=== PATIENT | female | born 1975 | race Caucasian/White ===

== ENCOUNTER → 2023-09-09 14:00 | Outpatient (BNVA) | payer MEDICARE, MEDICAID, SELFPAY | PROVIDERS: PCP Family Medicine; Referring Provider Family Medicine; Visit Provider Psychiatry & Neurology Neurology | DX: G43.009 Migraine without aura, not intractable, without status migrainosus (principal); G89.29 Other chronic pain; I95.1 Orthostatic hypotension; R56.9 Unspecified convulsions; M54.2 Cervicalgia | CPT/HCPCS: 99205; G2212 ==

== ENCOUNTER → 2023-11-15 10:47 | Outpatient (BNVA) | payer MEDICARE, MEDICAID, SELFPAY | PROVIDERS: PCP Family Medicine; Referring Provider Family Medicine; Visit Provider Psychiatry & Neurology Neurology | DX: G43.009 Migraine without aura, not intractable, without status migrainosus (principal); I95.1 Orthostatic hypotension; R56.9 Unspecified convulsions; M54.2 Cervicalgia; G89.29 Other chronic pain | CPT/HCPCS: 99215 ==

== ENCOUNTER 2023-12-07 03:05 | Outpatient (CLI) | payer MEDICARE, MEDICAID, SELFPAY ==
--- NOTE | 2023-12-15 10:38 | PDOC.EEG_ITS ---
Neurology EEG EEG: [facility] Department of Neurology LONG-TERM AMBULATORY EEG REPORT Date of Recordin12/07/23 at 13:29:38 to 12/09/23 at 07:10:31 Interpreting Physician: Dr. Lyndsay Patel PCP/Referring Provider: Dr. Chalo Caraballo Reason for study: Ms. Cornejo has recurrent spells of generalized shaking without LOC/SYLVIA. Current Medications: Home Medications ?Medication ?Instructions ?Recorded ?Confirmed ?Type albuterol sulfate 90 mcg/actuation 2 puff inhalation Q6H PRN 08/30/23 11/15/23 History aerosol inhaler (ProAir HFA) docusate sodium 100 mg capsule 100 mg PO BID PRN 08/30/23 11/15/23 History (Colace) dulaglutide 0.75 mg/0.5 mL 0.75 mg subcut QWEEK 08/30/23 11/15/23 History subcutaneous pen injector (Trulicity) fluticasone propionate 110 1 puff inhalation BID 08/30/23 11/15/23 History mcg/actuation HFA aerosol inhaler furosemide 20 mg tablet 20 mg PO DAILY 08/30/23 11/15/23 History hydrocodone 10 mg-acetaminophen 1 tab PO Q6H PRN 08/30/23 11/15/23 History 325 mg tablet insulin glargine 100 unit/mL (3 15 unit subcut QAM 08/30/23 11/15/23 History mL) subcutaneous pen (Lantus Solostar U-100 Insulin) insulin lispro 100 unit/mL 1 sliding scale dose subcut 08/30/23 11/15/23 History subcutaneous pen (Admelog SoloStar USEASDIRECTD U-100 Insulin lispro) lorazepam 0.5 mg tablet 0.5 mg PO TID PRN 08/30/23 11/15/23 History methocarbamol 750 mg tablet 750 mg PO TID 08/30/23 11/15/23 History ondansetron 4 mg disintegrating 4 mg PO Q8H 08/30/23 11/15/23 History tablet pantoprazole 40 mg tablet,delayed 40 mg PO BID 08/30/23 11/15/23 History release (Protonix) prazosin 2 mg capsule 2 mg PO QHS 08/30/23 11/15/23 History pregabalin 150 mg capsule 150 mg PO TID 08/30/23 11/15/23 History rizatriptan 10 mg tablet See Rx Instructions PO .COMPLEX 08/30/23 11/15/23 History ropinirole 1 mg tablet 1.5 mg PO QHS 08/30/23 11/15/23 History venlafaxine 75 mg tablet 75 mg PO DAILY 08/30/23 11/15/23 History lamotrigine 25 mg tablet 50 mg PO BID 09/09/23 11/15/23 History galcanezumab-gnlm 120 mg/mL 120 mg subcut QMONTH #3 mL 12/13/23 Rx subcutaneous pen injector (Emgality Pen) METHODS: An 18-channel digitized electroencephalogram was recorded in the ambulatory setting with video. The 10/20 international system of electrode placement was used and bipolar and referential electrode montages were recorded. In addition to EEG the patient was monitored for EKG and by video. Activation procedures of photic stimulation and hyperventilation were performed if applicable. The duration of the recording was ~41.5 hours. DESCRIPTION OF EEG: Waking background activity: During maximal wakefulness a 9-Hz posterior background rhythm was present which was well-modulated, symmetrical, reactive to eye opening, and of moderate voltage. Faster frequencies were present in the bilateral anterior head regions. There was a normal anterior-posterior voltage gradient. Drowsy and sleeping background activity: During drowsiness, there was attenuation of the posterior dominant background rhythm and vertex waves. Normal stage II and III sleep was present with symmetrical sleep spindles, K- complexes, and vertex waves with slowing of the background rhythm to delta/theta frequencies. REM sleep manifested by rapid lateral eye movements and faster background rhythms was recorded. Arousal was unremarkable. Interictal abnormalities: none. Ictal findings: Event #1 on 12/08/23 at 04:29:21 -Clinical manifestations: Woke up shaking and with head pain. -EEG findings: No abnormal or epileptiform activity. Event #2 on 12/08/23 at 07:15:09 -Clinical manifestations: Bilateral temporal squeezing headache. -EEG findings: No abnormal or epileptiform activity. Event #3 on 12/08/23 at 08:54:48 -Clinical manifestations: whooshing head pressure episodes when she becomes disoriented -EEG findings: No abnormal or epileptiform activity. Event #4 on 12/08/23 at 09:07:45 -Clinical manifestations: whooshing head pressure episodes when she becomes disoriented -EEG findings: No abnormal or epileptiform activity. Event #5 on 12/08/23 at 13:58:57 -Clinical manifestations: whooshing head pressure episodes when she becomes disoriented -EEG findings: No abnormal or epileptiform activity. Event #6 on 12/08/23 at 16:47:54 -Clinical manifestations: whooshing head pressure episodes when she becomes disoriented -EEG findings: No abnormal or epileptiform activity. Event #7 on 12/08/23 at 18:46:32 -Clinical manifestations: whooshing head pressure episodes when she becomes disoriented -EEG findings: No abnormal or epileptiform activity. Event #8 on 12/08/23 at 19:07:31 -Clinical manifestations: whooshing head pressure episodes when she becomes disoriented -EEG findings: No abnormal or epileptiform activity. Event #9 on 12/08/23 at 20:38:25 -Clinical manifestations: whooshing head pressure episodes when she becomes disoriented -EEG findings: No abnormal or epileptiform activity. Event #10 on 12/09/23 at 06:10:33 -Clinical manifestations: whooshing head pressure episodes when she becomes disoriented -EEG findings: No abnormal or epileptiform activity. Activating Procedures: Photic stimulation was not performed. Hyperventilation was performed with moderate effort and produced no physiological slowing of the background. EKG: EKG revealed normal sinus rhythm. INTERPRETATION: This long-term EEG is normal during the awake and sleep states as well as during the activation procedures. Multiple events captured as above, none associated with EEG abnormalities. PRIOR EEG: none CLINICAL CORRELATION: No focal regions of cerebral dysfunction or epileptiform activity was present. The above events captured were not associated with seizure activity and thus not consistent with epileptic seizures. Epilepsy remains a clinical diagnosis and a normal EEG does not rule out epilepsy. Clinical correlation is advised. Lyndsay Patel MD Date of service: 12/07/23
== END 2023-12-15 23:59 | disposition home or self-care (01) ==
LOC: RT 03:05
PROVIDERS: PCP Family Medicine; Visit Provider Psychiatry & Neurology Neurology
DX: R68.89 Other general symptoms and signs (principal); R55 Syncope and collapse
CPT/HCPCS: 95714; 95722

== ENCOUNTER → 2024-01-19 10:13 | Outpatient (BNVA) | payer MEDICARE, MEDICAID, SELFPAY | PROVIDERS: PCP Family Medicine; Referring Provider Family Medicine; Visit Provider Psychiatry & Neurology Neurology | DX: G43.009 Migraine without aura, not intractable, without status migrainosus (principal); I95.1 Orthostatic hypotension; G89.29 Other chronic pain; R56.9 Unspecified convulsions; M54.2 Cervicalgia; R42 Dizziness and giddiness | CPT/HCPCS: 99215 ==

== ENCOUNTER 2024-07-18 18:59 | Emergency (ER) | payer MEDICARE, MEDICAID, SELFPAY ==
--- NOTE | 2024-07-18 19:00 | RT.EKG_ITS ---
APPROVED REPORT Exam: Resting ECG Reason for Exam: syncope Patient Location: E HR:99 bpm ECG Measurements Heart Rate 99 AXIS UT 179 P 58 QRSd 81 QRS 17 QT 348 T 38 QTc 446 Conclusion Sinus rhythm...normal P axis, V-rate 60- 99 Low voltage, precordial leads...precordial leads <1.0mV Normal axis/interval No acute ST changes.
[2024-07-18 19:06] VITALS: BP 114/79; PULSE 90; RESP 20; TEMP 36.6; O2SAT 100
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
[2024-07-18 19:43] LABS: Abs Immature Grans 0.01 10^3/uL (0.0-0.06); Absolute Basophil Count 0.03 10^3/uL (0.0-0.2); Absolute Eosinophil Count 0.05 10^3/uL (0.0-0.7); Absolute Lymphocyte Count 2.46 10^3/uL (1.2-3.4); Absolute Monocyte Count 0.44 10^3/uL (0.1-0.8); Absolute Neutrophil Count 3.64 10^3/uL (1.2-6.7); Basophils % 0.5 %; Eosinophils % 0.8 %; HCT 42.9 % (36.0-46.0); HGB 14.4 g/dL (11.2-15.7); Immature Grans % 0.2 %; Lymphocytes % 37.1 %; MCHC 33.6 % (32.0-36.0); MCV 95 fL (80-95); MPV 10.8 fL (8.0-11.0); Monocytes % 6.6 %; Neutrophils % 54.8 %; Platelet Count 256 10^3/uL (130-400); RDW 11.9 % (11.7-14.6); RDW-SD 41.9 fL; WBC 6.63 10^3/uL (4.4-10.8)
--- NOTE | 2024-07-18 19:45 | DI.CT_ITS ---
Exam(s) CT ABDOMEN PELVIS W EXAM: CT ABDOMEN PELVIS W CLINICAL HISTORY: RUQ tenderness, complex ABD history TECHNIQUE: Imaging Protocol: Axial computed tomography images with coronal and sagittal reformatted images were created and reviewed. CONTRAST MATERIAL: Intravenous: Omnipaque 350 Contrast volume:75 mL Oral: No COMPARISON: CT CT SPINE THORACIC AND LUMBAR W/CONT from 12/15/[address] CHEST/ABD/PELVIS W/CONTRAST from 12/15/2023 FINDINGS: ABDOMEN: Lung Bases: No acute abnormality. There is a small paraesophageal hernia. Liver: Normal density. No measurable mass. Portal, Superior Mesenteric, and Splenic Veins: Unremarkable. Gallbladder and Biliary Tract: Status post cholecystectomy. The common bile duct is within normal li mits in a post cholecystectomy patient. Pancreas: Pancreatic calcifications are again noted. This can be seen with chronic pancreatitis. No pancreatic mass or peripancreatic fluid collections are seen. Spleen: The spleen is mildly enlarged. There are areas of scarring in the superior aspect of the spl een which may reflect prior injury or infarct. This was present on the prior examination. Adrenals: There are stable bilateral adrenal nodules. These likely reflect adenomas. No follow-up i s recommended. Kidneys: Normal size, contour and axis. No radiodense stones or obstructive uropathy. No masses seen. Abdominal Aorta: Abdominal portion non-dilated. Atherosclerotic calcification is present. Bowel: There is a moderate amount of stool in the colon. There are postsurgical changes seen in the stomach which may reflect prior gastric bypass surgery. There is no evidence of bowel obstruction. Incidental note is made of an enteroenteric intussusception in the left upper quadrant. The stomach is incompletely distended limiting evaluation. Fluid-filled loops of small bowel are seen. This may represent a diarrheal illness or mild enteritis. Please correlate clinically. Appendix is unremark able. Peritoneal Cavity: No ascites, collection or mesenteric inflammatory response. No free air. Lymph Nodes: Within normal limits. Bones: Within normal limits for the patient's age. Old healed rib fracture deformities are present. There is a new mild compression of the superior endplate of L1. This was not present on the prior e xamination. There is loss of less than 20 percent of the height of the vertebral body. No retropuls ion or central spinal canal stenosis is present. Soft Tissues: Unremarkable. PELVIS: Bladder: Symmetric distention, no gross wall thickening. Reproductive Organs: Status post hysterectomy. Lymph Nodes: Within normal limits. Bones: Within normal limits for the patient's age. IMPRESSION: 1. New mild compression of the superior endplate of L1. This is of indeterminate age. Acute fractur e cannot be excluded. Please correlate with patient's clinical history. MRI may be obtained for fur ther characterization. 2. Fluid-filled loops of small bowel which may represent a diarrheal illness or mild enteritis. Plea se correlate clinically. 3. Splenomegaly and stable splenic scarring. 4. Moderate amount of stool in the colon which may reflect constipation. 5. The preliminary [facility] report was reviewed. RADIATION DOSE DELIVERED: 1,038.45mGy.cm Total DLP DATA REPOSITORY: All CT scans at this facility are submitted to the National Radiology Data Registry (NRDR) Dose Index Registry (DIR) with the [employer] (A[employer]). RADIATION OPTIMIZATION: All CT scans at this facility use at least one of these dose optimization te chniques: automated exposure control; mA and/or kV adjustment per patient size (includes targeted exa ms where dose is matched to clinical indication); or iterative reconstruction.
--- NOTE | 2024-07-18 19:45 | DI.RAD_ITS ---
Exam(s) XR CHEST 2V PA LATERAL EXAM: XR CHEST 2V PA LATERAL CLINICAL HISTORY: dizziness, chest pain TECHNIQUE: 2D digital imaging was performed of the chest. Two images were obtained. AP and lateral views were obtained. COMPARISON: CR PORTABLE AP CHEST from 02/18/2009 FINDINGS: MEDIASTINUM: Normal. HEART: Normal. PULMONARY VASCULATURE: Normal. LUNGS: Clear. PLEURAL SPACE: No pleural effusion or pneumothorax. BONE:Within normal limits for the patient's age. Old healed right rib fracture deformities. OTHER FINDINGS:Normal. IMPRESSION: 1. No acute pulmonary findings. 2. The preliminary [facility] report was reviewed. DATA REPOSITORY: RADIATION DOSE DELIVERED:
--- NOTE | 2024-07-18 19:45 | DI.CT_ITS ---
Exam(s) CT HEAD WO EXAM: CT HEAD WO CLINICAL HISTORY: dizziness, syncope. TECHNIQUE: Imaging Protocol: Axial computed tomography images with coronal and sagittal reformatted images were created and reviewed COMPARISON: MR MR BRAIN WO CONTRAST from 08/25/2023 FINDINGS: Ventricles and Extra axial spaces: Normal in size and morphology for the patient's age. Hemorrhage: None. Cerebral parenchyma: Normal. Midline shift: None. Brainstem/Cerebellum: Normal. Calvarium: Normal. Visualized Paranasal sinuses/Mastoids: Clear. Soft Tissues: Unremarkable. IMPRESSION: 1. No acute intracranial process. 2. The preliminary [facility] report was reviewed. RADIATION DOSE DELIVERED: 791.64mGy.cm Total DLP DATA REPOSITORY: All CT scans at this facility are submitted to the National Radiology Data Registry (NRDR) Dose Index Registry (DIR) with the [employer] ([employer]). RADIATION OPTIMIZATION: All CT scans at this facility use at least one of these dose optimization te chniques: automated exposure control; mA and/or kV adjustment per patient size (includes targeted exa ms where dose is matched to clinical indication); or iterative reconstruction.
[2024-07-18] MEDS: Normal Saline 500 ML IV (19:58)
[2024-07-18 20:07] LABS: ETHANOL BLOOD < 3.0 mg/dL (<10)
[2024-07-18 20:20] LABS: ALT 82 U/L (14-59); AST 30 U/L (15-37); Albumin 4.4 g/dL (3.4-5.0); Alkaline Phosphatase 254 U/L (46-116); Anion Gap 8.2 mmol/L (3-11); BUN 14 mg/dL (7-18); Bilirubin, Total 0.5 mg/dL (0.2-1.0); CO2 30.8 mmol/L (21.0-32.0); CREATININE 0.9 mg/dL (0.55-1.02); Calcium 9.1 mg/dL (8.5-10.1); Chloride 101 mmol/L (98-107); Estimated GFR 79.85 (mL/min/1.73m2); Glucose 255 mg/dL (74-106); Magnesium 1.7 mg/dL (1.8-2.4); Potassium 3.3 mmol/L (3.5-5.1); Sodium 140 mmol/L (136-145); Troponin I 4 ng/L (<or=51)
[2024-07-18] MEDS: Normal Saline - Diluent 50 ML VIAL IJ (20:44)
[2024-07-18] MEDS: Omnipaque 350 MG/ML 100 ML BTL 75 ML IJ (20:45)
[2024-07-18 21:03] LABS: Troponin I 4 ng/L (<or=51)
--- NOTE | 2024-07-18 21:23 | DI.[facility]_ITS ---
PROCEDURE INFORMATION: Exam: CT Head Without Contrast Exam date and time: 07/18/2024 8:41 PM Age: 48 years old Clinical indication: Dizziness and syncope and collapse TECHNIQUE: Imaging protocol: Computed tomography of the head without contrast. COMPARISON: MR BRAIN WO CONTRAST 08/25/2023 1:11 PM FINDINGS: Brain: Normal. No hemorrhage. Unremarkable white matter. No mass effect. Cerebral ventricles: No ventriculomegaly. Paranasal sinuses: Visualized sinuses are unremarkable. No fluid levels. Mastoid air cells: Visualized mastoid air cells are well aerated. Bones: Unremarkable. No acute fracture. Soft tissues: Unremarkable. IMPRESSION: No acute intracranial abnormality. Dictated and Authenticated by: Hieu Piña MD. Orderin Geeta Villa MD
--- NOTE | 2024-07-18 21:43 | DI.[facility]_ITS ---
PROCEDURE INFORMATION: Exam: CT Abdomen And Pelvis With Contrast Exam date and time: 07/18/2024 8:53 PM Age: 48 years old Clinical indication: Other: Ruq tenderness, complex abd history TECHNIQUE: Imaging protocol: Computed tomography of the abdomen and pelvis with contrast. Contrast material: OMNIPAQUE 350; Contrast volume: 75 ml; Contrast route: INTRAVENOUS (IV); COMPARISON: CT CHEST/ABD/PELVIS W/CONTRAST 12/15/2023 11:21 AM FINDINGS: Coronary arteries: No coronary artery calcification. Liver: Normal. No mass. Gallbladder and biliary ducts: Gallbladder surgically absent. Pancreas: Punctate pancreatic parenchymal calcifications, consistent with chronic pancreatitis. Spleen: Mild splenomegaly up to 15.5 cm. Previous splenic lacerations noted. Adrenal glands: 1.7 cm lesion at the right adrenal gland. While this may represent an adenoma, it is indeterminate on this exam. Kidneys and ureters: Normal. No hydronephrosis. Stomach and bowel: Previous gastric stapling and bypass. Above average stool throughout the colon. No evidence of intestinal perforation or obstruction. Borderline mild nonspecific colitis sigmoid and rectosigmoid. Appendix: No evidence of appendicitis. Intraperitoneal space: Unremarkable. No free air. No significant fluid collection. Vasculature: Aorta demonstrates mild atherosclerotic calcification. No abdominal aortic aneurysm. Lymph nodes: Unremarkable. No enlarged lymph nodes. Urinary bladder: Unremarkable as visualized. Reproductive: Unremarkable as visualized. Bones/joints: Previous repair right hip fracture. Subacute compression fracture superior endplate L1 with 5-10% loss of height. Soft tissues: Pelvic floor descent noted. IMPRESSION: 1. Mild splenomegaly up to 15.5 cm. 2. Borderline mild nonspecific colitis sigmoid and rectosigmoid. 3. Subacute compression fracture superior endplate L1 with 5-10% loss of height. Dictated and Authenticated by: Yoan Larson MD. Orderin Geeta Villa MD
--- NOTE | 2024-07-18 21:53 | DI.[facility]_ITS ---
PROCEDURE INFORMATION: Exam: XR Chest Exam date and time: 07/18/2024 9:05 PM Age: 48 years old Clinical indication: Other: Dizziness, chest pain TECHNIQUE: Imaging protocol: Radiologic exam of the chest. Views: 2 views. COMPARISON: CT CHEST/ABD/PELVIS W/CONTRAST 12/15/2023 11:21 AM FINDINGS: Lungs: Unremarkable. No consolidation. Pleural spaces: Unremarkable. No pleural effusion. No pneumothorax. Heart/Mediastinum: Unremarkable. No cardiomegaly. Bones/joints: Old right rib fractures. IMPRESSION: No acute findings. Dictated and Authenticated by: Yoan Larson MD. Orderin Geeta Villa MD
== END 2024-07-18 22:44 | disposition home or self-care (01) ==
PROVIDERS: Emergency Provider Physician Assistant; PCP Family Medicine
DX: R55 Syncope and collapse (principal); F41.9 Anxiety disorder, unspecified; I10 Essential (primary) hypertension; E11.9 Type 2 diabetes mellitus without complications; E78.1 Pure hyperglyceridemia; F17.200 Nicotine dependence, unspecified, uncomplicated; Z98.84 Bariatric surgery status; Z79.4 Long term (current) use of insulin; Z79.85 Long-term (current) use of injectable non-insulin antidiabetic drugs
CPT/HCPCS: 80053; 82962; 93005; 99285; 70450; 71046; 74177; 80320; 83735; 84443; 84484; 85025; 93010; 99284; J3490